=== PATIENT | male | born 1960 ===

== ENCOUNTER → 2021-01-17 | Outpatient (CLI) | payer SELFPAY ==
--- NOTE | 2021-01-17 11:10 | Diagnostic Imaging Report ---
HISTORY: Crush injury to the left 3rd distal phalanx COMPARISON: None TECHNIQUE: 3 views of the left 3rd finger FINDINGS: There is marked soft tissue swelling and laceration at the distal left 3rd finger. No radiopaque foreign body is seen. Subtle lucency at the medial tuft of the distal phalanx may represent a nondisplaced fracture. Alignment otherwise appears normal. There is marked degenerative change at the base of the thumb. IMPRESSION:. Likely nondisplaced fracture at the left 3rd finger distal phalangeal tuft with surrounding soft tissue swelling and laceration. Dictated by: Dictated on workstation # [id number]
== END ==
LOC: RAD 10:36
PROVIDERS: ATTEND Nurse Practitioner Family
DX: S67.193A Crushing injury of left middle finger, initial encounter (principal); L03.012 Cellulitis of left finger; L02.512 Cutaneous abscess of left hand; X58.XXXA Exposure to other specified factors, initial encounter
CPT/HCPCS: 73140